=== PATIENT | female | born 1945 | race Caucasian/White ===

== ENCOUNTER 2019-07-09 03:48 | Outpatient (CLI) | payer MEDICARE, BC | END 2019-07-09 23:59 | disposition home or self-care (01) | LOC: RT 03:48 | PROVIDERS: ATTEND Internal Medicine Critical Care Medicine | DX: J44.9 Chronic obstructive pulmonary disease, unspecified (principal) | CPT/HCPCS: 94618 ==

== ENCOUNTER 2020-03-26 10:33 | Outpatient (CLI) | payer MEDICARE, BC ==
[2020-03-26 11:10] LABS: ABG BASE EXCESS 0.4 mmol/L (-2.0-2.0); ABG HCO3 26.6 mmol/L (22.0-26.0); ABG OXYGEN SATURATION 88.8 % (94-97); ABG PCO2 (T) 49.1 mmHg (32.0-45.0); ABG PO2 (T) 56.8 mmHg (75.0-100.0); ALLEN'S TEST POSITIVE; FCOHb 0.5 % (0.0-3.9); FMetHb 0.1 % (0.0-1.5); FO2Hb 88.3 % (94-97); TOTAL HEMOGLOBIN 13.2 G/dl (12.0-16.0)
== END 2020-03-26 23:59 | disposition home or self-care (01) ==
LOC: RT 10:33
DX: J43.2 Centrilobular emphysema (principal); R06.09 Other forms of dyspnea; R91.8 Other nonspecific abnormal finding of lung field
CPT/HCPCS: 36600; 82803; 85018

== ENCOUNTER 2020-12-10 14:55 | Outpatient (CLI) | payer MEDICARE, BC | END 2020-12-10 23:59 | disposition home or self-care (01) | LOC: CARD DIAG 14:55 | PROVIDERS: ATTEND Internal Medicine Hematology & Oncology | DX: C50.412 Malignant neoplasm of upper-outer quadrant of left female breast (principal); I08.0 Rheumatic disorders of both mitral and aortic valves | CPT/HCPCS: 93306 ==

== ENCOUNTER 2021-02-05 13:57 | Outpatient (CLI) | payer MEDICARE, BC | END 2021-02-05 23:59 | disposition home or self-care (01) | LOC: CARD DIAG 13:57 | PROVIDERS: ATTEND Internal Medicine Hematology & Oncology | DX: C50.412 Malignant neoplasm of upper-outer quadrant of left female breast (principal); I08.0 Rheumatic disorders of both mitral and aortic valves | CPT/HCPCS: 93306 ==

== ENCOUNTER 2021-04-27 15:01 | Outpatient (CLI) | payer MEDICARE, BC | END 2021-04-27 23:59 | disposition home or self-care (01) | LOC: CARD DIAG 15:01 | PROVIDERS: ATTEND Internal Medicine Hematology & Oncology | DX: C50.412 Malignant neoplasm of upper-outer quadrant of left female breast (principal); I34.0 Nonrheumatic mitral (valve) insufficiency | CPT/HCPCS: 93308 ==

== ENCOUNTER 2021-12-23 14:00 | Outpatient (CLI) | payer MEDICARE, BC | END 2021-12-23 23:59 | disposition home or self-care (01) | LOC: RAD 14:00 | PROVIDERS: ATTEND Family Medicine | DX: R13.14 Dysphagia, pharyngoesophageal phase (principal); K21.9 Gastro-esophageal reflux disease without esophagitis | CPT/HCPCS: 74230 ==